=== PATIENT | male | born 1950 | race Caucasian/White ===

== ENCOUNTER → 2017-09-15 | Outpatient (CLI) | payer OTHER ==
[2017-09-15 20:00] LABS: Specimen Source URINE
[2017-09-17 01:23] LABS: Source Urine
== END | disposition home or self-care (01) ==
LOC: LAB 16:36
PROVIDERS: Nurse Practitioner Primary Care
DX: N48.1 Balanitis (principal)
CPT/HCPCS: 87491; 87591

== ENCOUNTER 2018-12-03 09:37 | Emergency (ER) | payer OTHER ==
[~2018-12-03] VITALS: Ht 182.9 cm; Wt 113.4 kg
[2018-12-03] MEDS ORDERED: Glyburide5 MG PO (10:24)
[2018-12-03] MEDS ORDERED: LOSARTAN-HCTZ1 EACH PO (10:24)
[2018-12-03] MEDS ORDERED: EAR WAX DROPS15 ML RIGHTEAR (11:18)
== END 2018-12-03 11:31 | disposition home or self-care (01) ==
LOC: ER 09:37
DX: H61.21 Impacted cerumen, right ear (principal); Z79.899 Other long term (current) drug therapy; I10 Essential (primary) hypertension; E11.9 Type 2 diabetes mellitus without complications; Z87.891 Personal history of nicotine dependence
CPT/HCPCS: 69209; 99282-25

== ENCOUNTER 2024-11-19 00:12 | Emergency (ER) | payer OTHER ==
[~2024-11-19] VITALS: Ht 182.9 cm; Wt 102.1 kg
[~2024-11-19 00:12] MED LIST: EAR WAX DROPS15 ML RIGHTEAR; Glyburide5 MG PO; LOSARTAN-HCTZ1 EACH PO
[2024-11-19 02:15] VITALS: BP 128/97
== END 2024-11-19 02:20 | disposition home or self-care (01) ==
LOC: ER 00:12
DX: R06.02 Shortness of breath (principal); R06.01 Orthopnea; Z87.891 Personal history of nicotine dependence; E11.9 Type 2 diabetes mellitus without complications; I10 Essential (primary) hypertension; Z79.811 Long term (current) use of aromatase inhibitors; Z79.84 Long term (current) use of oral hypoglycemic drugs; Z79.85 Long-term (current) use of injectable non-insulin antidiabetic drugs
CPT/HCPCS: 71046; 93005; 93010; 99285-25